=== PATIENT | female | born 1950 | race Caucasian/White ===

== ENCOUNTER 2020-12-10 10:36 | Observation (INO) | payer SELFPAY ==
[~2020-12-10] VITALS: Ht 149.9 cm; Wt 64.0 kg
[2020-12-11 18:20] VITALS: BP 162/70
== END 2020-12-12 23:59 | disposition still patient (30) ==
LOC: ED 11:25 → EDIP 13:06 → INTOOBSV 13:06 → SUATTDRO 13:34 → 5SO 12-11 00:06
PROVIDERS: ADMIT Internal Medicine; ATTEND Internal Medicine
DX: R07.89 Other chest pain (principal); R51.9 Headache, unspecified; R79.89 Other specified abnormal findings of blood chemistry; D72.829 Elevated white blood cell count, unspecified; I10 Essential (primary) hypertension; F41.8 Other specified anxiety disorders; F17.200 Nicotine dependence, unspecified, uncomplicated; Z90.710 Acquired absence of both cervix and uterus; Z91.040 Latex allergy status; Z79.899 Other long term (current) drug therapy